=== PATIENT | female | born 1945 | race Caucasian/White ===

== ENCOUNTER → 2017-05-30 | Outpatient (CLI) | payer MEDICARE, BC ==
[~2017-05-30] MED LIST: LIPITOR 40MG TA40 MG PO
== END ==
LOC: MC.RAD 09:00
DX: Z12.31 Encounter for screening mammogram for malignant neoplasm of breast (principal)

== ENCOUNTER → 2019-06-07 | Outpatient (CLI) | payer MEDICARE, BC | LOC: MC.RAD 10:42 | DX: Z12.31 Encounter for screening mammogram for malignant neoplasm of breast (principal) ==

== ENCOUNTER 2019-12-25 18:23 | Observation (INO) | payer MEDICARE, BC ==
[~2019-12-25] VITALS: Ht 5.1 cm; Wt 75.4 kg
[2019-12-25 19:14] LABS: BASO % 0.6 % (0.0-2.0); EOS # 0.1 (0.0-0.7); EOS % 1.1 % (0-4.0); GRAN # 4.5 (1.4-6.5); HEMATOCRIT 43.3 % (37.0-47.0); HEMOGLOBIN 14.6 g/dl (12.5-16.0); LYMPH # 1.3 (1.2-3.4); LYMPH % 19.8 % (20.0-51.0); MEAN CELL VOLUME 94 fl (80.0-100.0); MEAN CORPUSCULAR HEMOGLOBIN 32 pg (27.0-31.0); MEAN CORPUSCULAR HGB CONC 34 g/dl (33.0-37.0); MEAN PLATELET VOLUME 11.7 fl (7.4-10.4); MONO # 0.8 (0.1-0.6); MONO % 11.3 % (1.7-9.3); PLATELET COUNT 152 K/mm3 (130-400); RED BLOOD COUNT 4.59 M/mm3 (4.10-5.30); REDCELL DISTRIBUTION WIDTH-CV 12.8 % (11.5-14.5)
[2019-12-25 19:15] VITALS: BP 160/85; PULSE 86
[2019-12-25 19:41] LABS: INR 1.1 (0.8-3.0); PROTHROMBIN TIME 12.8 SECONDS (9.7-12.8)
[2019-12-25 19:45] LABS: ALBUMIN 4.4 gm/dL (3.5-5.0); BILIRUBIN,TOTAL 1.1 mg/dL (0.0-1.0); CALCIUM 9.5 mg/dL (8.4-10.2); CREATININE, serum 0.78 (0.52-1.25); POTASSIUM 4.8 mmol/L (3.4-5.0); TOTAL PROTEIN 7.9 gm/dL (6.4-8.2)
[2019-12-25 20:03] LABS: TROPONIN-I 0.038 ng/mL (0.000-0.035)
[2019-12-26] VITALS (8 sets, daily range): BP systolic 132–161; BP diastolic 46–89; PULSE 49–92; TEMP 97.6–98.6
--- NOTE | 2019-12-26 00:15 | NUR ---
ADMITTED TO ROOM 332 VIA WC FROM ER. SALINE LOCK TO LAC/INTACT, TELE IN PLACE. PATIENT DENIES CHEST PAIN, SHORTNESS OF BREATH, NUMBNESS/TINGLING AT TIME OF ADMIT.
--- NOTE | 2019-12-26 02:30 | NUR ---
INFORMED PROVIDER OF RECENT TROPONIN LEVEL, ORDER FOR REPEAT TROPONIN TO BE DRAWN 6 HRS FROM PREVIOUS TROPONIN DRAWN, ORDER ALREADY IN SYSTEM.
--- NOTE | 2019-12-26 06:55 | NUR ---
PATIENT RESTING IN BED DURING CHANGE OF SHIFT REPORT GIVEN TO DAY SHIFT NURSETAN. TELE IN PLACE, IV FLUID INFUSING WITH NO PROBLEMS.
--- NOTE | 2019-12-26 07:12 | NUR ---
report from Velma EVANS.
--- NOTE | 2019-12-26 08:53 | NUR ---
PT RESTING IN BED AM LABS RETURNED. PT EATING AND DRINKING WELL. PT DENIES PAIN OR N/V THIS AM. ANKLE SORE, X-RAY COMPLETE. PT DENIES NEEDS.
--- NOTE | 2019-12-26 10:10 | NUR ---
KATHERINE attended clinical rounds with the team. PT was ordered for the patient. After rounds SW met with the patient and the patient's only son, Golden to complete initial intake. The patient lives alone in [place]. Golden lives nearby. The patient denies DME use and is independent with ADLs. The patient's PCP is Dr. Beltran and patient receives medications from [facility] with no difficulties. The patient does not have advanced directives in the EMR but was interested in a DPOA-HC form. The patient plans to return home at discharge. The patient recently lost her to suicide. KATHERINE provided community resources for the patient. There are no additional needs at this time.
--- NOTE | 2019-12-26 10:27 | NUR ---
FOLLOW UP WITH DR. CORDOVA OUTPATIENT FOR FURTHER EVAL AND TX. DECEMBER 31 @ [id number].
--- NOTE | 2019-12-26 17:28 | NUR ---
REVIEWED DISCHARGE INSTRUCTIONS WITH PATIENT. SHE WILL FOLLOW UP WITH PCP AND ORTHO AFTER DISCHARGE.
== END 2019-12-26 18:00 | disposition home or self-care (01) ==
LOC: COL.ER 18:23 → JCC 21:53
PROVIDERS: Emergency Medicine; ADMIT Student in an Organized Health Care Education/Training Program
DX: R55 Syncope and collapse (principal); E78.5 Hyperlipidemia, unspecified; S82.62XA Displaced fracture of lateral malleolus of left fibula, initial encounter for closed fracture; I08.1 Rheumatic disorders of both mitral and tricuspid valves
CPT/HCPCS: 99222-AI; G0378; J7030; Q9967

== ENCOUNTER → 2020-06-09 | Outpatient (CLI) | payer MEDICARE, BC | LOC: MC.RAD 09:56 | DX: Z12.31 Encounter for screening mammogram for malignant neoplasm of breast (principal) ==

== ENCOUNTER → 2021-07-26 | Outpatient (CLI) | payer MEDICARE, BC | LOC: MC.RAD 11:14 | DX: Z12.31 Encounter for screening mammogram for malignant neoplasm of breast (principal) ==

== ENCOUNTER → 2022-08-10 | Outpatient (CLI) | payer MEDICARE, BC | LOC: MC.RAD 12:58 | DX: Z12.31 Encounter for screening mammogram for malignant neoplasm of breast (principal) ==

== ENCOUNTER → 2023-09-19 | Outpatient (CLI) | payer MEDICARE, BC | LOC: MC.RAD 10:57 | DX: Z12.31 Encounter for screening mammogram for malignant neoplasm of breast (principal) ==